=== PATIENT | male | born 1955 | race Caucasian/White ===

== ENCOUNTER 2019-01-09 21:01 | Observation (INO) ==
[2019-01-09] MEDS ORDERED: ADENOCARD ONE ×2 (21:32→21:33)
[2019-01-09] MEDS ORDERED: NS 1,000 ML ONE (21:34)
[2019-01-09] MEDS ORDERED: NS 1,000 ML IV ONE (21:36)
[2019-01-09] MEDS ORDERED: ADENOCARD IV ONE ×2 (21:37)
--- NOTE | 2019-01-09 21:50 | PROVIDER DOCUMENTATION ---
HPI-Cardiac General - General Chief Complaint: HEART ALERT Stated Complaint: HIGH HEART RATE/SOB/HEART HISTORY Time Seen by Provider: 01/09/19 21:21 Source: patient Allergies/Adverse Reactions: Patient Allergies Allergy/AdvReac Type Severity Reaction Status Date / Time No Known Allergies Allergy Verified 09/29/16 22:19 Home Medications: Home Medication List Medication Instructions Recorded Confirmed Last Taken Type Aspirin 325 mg PO DAILY 11/05/14 09/29/16 09/29/16 History Furosemide [Lasix] 40 mg PO DAILY 11/05/14 09/29/16 09/29/16 History Losartan/Hydrochlorothiazide 1 each PO DAILY 11/05/14 09/29/16 09/29/16 History [Losartan-Hctz 100-12.5 mg Tab] Metformin [Glucophage] 500 mg PO DAILY 11/05/14 09/29/16 09/29/16 History Metoprolol Tartrate [Lopressor] 100 mg PO DAILY 11/05/14 09/29/16 09/29/16 History Loratadine [Claritin] 10 mg PO DAILY 09/29/16 09/29/16 09/29/16 History Clindamycin [Cleocin] 300 mg PO Q6HR #40 capsule 09/30/16 Unknown Rx - History of Present Illness-Cardiac Nature of Presenting Problem: 63 yr old M, hx of HF, HTN, presents with palpitations and SOB that started 45 minutes prior to arrival. Symptoms started suddenly. No chest pain, no LOC. Pt only reports difficulty trying to catch his breath. Reports having had palpitations in the past, but this is the first time he has ever felt short of breath when it happens. Severity in ED: moderate Onset/Duration: just prior to arrival Timing: still present Context/Activities at Onset: reports: none Palpitation lasted? (mins): 45 Palpitation Quality: fast/pounding heart beat History of arrythmia: reports: none Recent use of:: reports: no stimulants Nitro Today/Relief: reports: no nitro taken today Aspirin Treatment Today: reports: no aspirin today Prior Chest Pain/Cardiac Workup: reports: no prior chest pain. denies: cardiac cath Associated Symptoms: reports: shortness of breath. denies: syncope Review of Systems - Adult - REVIEW OF SYSTEMS - ADULT Constitutional: reports: no symptoms reported Eyes: reports: no symptoms reported Ears, Nose, Mouth & Throat: reports: no symptoms reported Cardiovascular: reports: palpitations Respiratory: reports: shortness of breath Gastrointestinal: reports: no symptoms reported Genitourinary: reports: no symptoms reported Musculoskeletal: reports: no symptoms reported Integumentary: reports: no symptoms reported Neurological: reports: no symptoms reported Psychiatric: reports: no symptoms reported Past History - Adult - PAST MEDICAL HISTORY-ADULT Review of Records: reports: Old Records Reviewed, Nursing Assessment Review Major Childhood Illnesses: reports: denies history Cardiovascular: reports: denies history Respiratory: reports: denies history Gastrointestinal: reports: denies history Obstetrical/Gynecological: reports: denies history Genitourinary: reports: denies history Musculoskeletal: reports: denies history Neurological: reports: denies history Endocrine/Immune: reports: denies history Other Conditions: reports: denies history - FAMILY HISTORY Family History: reviewed, not pertinent - SOCIAL HISTORY Smoking: denies Substance Use: none/never Living Situation: family Physical Exam-General - PHYSICAL EXAM-ADULT Initial Vital Signs Reviewed: Yes - CONSTITUTIONAL General Appearance: alert, mild distress - EYES Eyes: PERRL/EOMI - HEAD, EARS, NOSE, MOUTH & THROAT HENMT: normocephalic/atraumatic, moist mucous membranes - RESPIRATORY Respiratory: lungs clear, normal breath sounds - CARDIOVASCULAR Cardiovascular: tachycardia - GASTROINTESTINAL (ABDOMEN) Abdominal Exam: non tender, soft - SKIN Integumentary: warm/dry - NEUROLOGIC Neurologic: no motor/sensory deficits - PSYCHIATRIC Psych/Mental Status: oriented x 3, anxious - HEART Score HEART Score: History: Moderately Suspicious HEART Score: ECG: Normal HEART Score: Age: 45-65 Years HEART Score: Risk Factors for Atherosclerotic Disease: 1 or 2 Risk Factors HEART Score: Troponin: < or = Normal Limit Total HEART Score:: 3 Progress - PLAN OF CARE/RESULTS Progress/Plan/Lab Results: Attempted vagal maneuvers initially, with no success. Connected pt to monitor, discussed with the pt our plan to administer adenosine and potential reaction; administered adenosine 6 mg, received temporary reduction in rate before noting rebound tachycardia. Administered 12 mg of adenosine, achieved rate reduction to to low 100s. Re-evaluation about 30 min later showed HR in the high 90s. Pt was stable, tolerated intervention well. Discussed case with hospitalist who accepts for admission. Result Diagrams: 01/09/19 21:36 11/19/19 21:36 - EKG 1 Time of EKG reading by physician:: 21:08 EKG Read and Signed by:: Que Del Valle EKG Interpretation (*Must complete 3 of following elements*): Abnormal Rate: 174 Rhythm: supraventricular tachycardia Diana: normal ST Wave: normal 2 Time of EKG reading by physician:: 22:04 EKG Read and Signed by:: Keily Valdovinos EKG Interpretation (*Must complete 3 of following elements*): Normal Rate: 107 Rhythm: sinus tachycardia Diana: normal QRS: normal SD Interval: normal ST Wave: normal Prior EKG Comparison: changes noted Comments: improved HR - XRAY 1 XRAY Study: Chest Impression: See EMR Report XRAY Interpretation: no acute processes Departure - Departure Date of Disposition Decision: 01/10/19 Time of Disposition Decision: 01:33 DIAGNOSIS: Supraventricular tachycardia Disposition: ADMITTED INPATIENT 09 Certified Medical Emergency: Emergent Condition: Fair - Critical Care Note This patient required my direct & personal management of CC.: No Attestation - Physician/ DEMETRIO Attestation Patient care was provided by Advanced Practice Provider:: No The physician spent face to face time with patient:: Yes Advanced Practice Provider documentation review:: Supervising physician onsite and consulted in the evaluation and care of this patient. The physician did have a face to face encounter with the patient.
[2019-01-09 21:54] LABS: BASO# 0.11 X1000 (0.0-0.2); BASO% 1.1 % (0.0-0.8); HEMATOCRIT 46.7 % (42.0-52.0); HEMOGLOBIN 15.6 g/dL (14.0-18.0); IMM GRAN# 0.02 X1000 (0.0-0.04); IMM GRAN% 0.2 % (0.0-0.5); LYMPH# 3.34 X1000 (1.2-3.4); LYMPH% 33.6 % (20.5-51.1); MCH 28.7 PG (27-31); MCHC 33.4 g/dL (33-37); MCV 85.8 FL (81-99); MONO# 0.81 X1000 (0.11-0.59); MONO% 8.1 % (1.7-9.3); MPV 9.4 FL (7.4-10.4); NEUT# 5.06 X1000 (1.4-6.5); PLT 277 X1000 (130-400); RBC 5.44 XMIL (4.7-6.1); RDW 13.6 % (11.5-14.5); WBC 9.94 X1000 (4.8-10.8)
--- NOTE | 2019-01-09 22:01 | EKG Report ---
Test Performed on : 01/09/2019 9:07:18 PM Test Reason : SOB Blood Pressure : / mmHG Vent. Rate : 174 BPM Atrial Rate : 178 BPM P-R Int : 000 ms QRS Dur : 094 ms QT Int : 272 ms P-R-T Axes : 000 -05 014 degrees QTc Int : 462 ms Supraventricular tachycardia. Inferior infarct , age undetermined Abnormal ECG When compared with ECG of 12-AUG-2009 09:27, Vent. rate has increased BY 89 BPM Inferior infarct is now present ST now depressed in Inferior leads ST now depressed in Anterolateral leads Unconfirmed Result
[2019-01-09 22:02] LABS: INR 1.01; PROTIME 13.4 Seconds (11.0-16.0)
--- NOTE | 2019-01-09 22:03 | EKG Report ---
Test Performed on : 01/09/2019 10:04:11 PM Test Reason : Tachycardia Blood Pressure : / mmHG Vent. Rate : 107 BPM Atrial Rate : 107 BPM P-R Int : 194 ms QRS Dur : 094 ms QT Int : 336 ms P-R-T Axes : 027 013 011 degrees QTc Int : 448 ms Sinus tachycardia. Otherwise normal ECG When compared with ECG of 09-JAN-2019 21:07, (Unconfirmed) Vent. rate has decreased BY 67 BPM Criteria for Inferior infarct are no longer present ST no longer depressed in Inferior leads ST no longer depressed in Anterolateral leads Unconfirmed Result
--- NOTE | 2019-01-09 22:11 | Diag Imaging Result Doc PS360 ---
CHEST-1 VIEW - 01/09/2019 INDICATION: SOB, tachycardia COMPARISON: 07/15/2017 FINDINGS: The lungs are normally expanded and clear. Heart size and mediastinal contours are normal. No pneumothorax or pleural effusion. IMPRESSION: Negative exam. Electronically signed by Shreyas Alcocer 01/09/2019 10:09 PM
[2019-01-09 22:12] LABS: AGAP 15; ALB/GLOB RATIO 1.4; ALBUMIN 4.4 g/dL (3.5-5.0); ALKALINE PHOSPHATASE 80 U/L (32-122); BUN 16 mg/dL (8-22); CALCIUM 9.5 mg/dL (8.8-10.2); CHLORIDE 95 mmol/L (98-107); CK PROFILE 269 U/L (24-204); COSMO 285; ESTIMATED GFR > 60; GLUCOSE 280 mg/dL (70-104); GOT 23 U/L (10-34); GPT 35 U/L (10-44); POTASSIUM 3.5 mmol/L (3.5-5.1); SODIUM 137 mmol/L (136-145); TCO2 27 mmol/L (25-35); TOTAL BILIRUBIN 0.41 mg/dL (0.20-1.00); TOTAL PROTEIN 7.5 g/dL (6.3-8.3)
[2019-01-09 22:31] LABS: CK INDEX 1.9 (0.0-2.5); CK-MB 5.01 ng/mL (0.0-5.0)
[2019-01-09 22:53] LABS: PTT 27.2 Seconds (22.3-41.8)
[2019-01-10] MEDS: LOVENOX SUBQ SCH (02:17)
--- NOTE | 2019-01-10 07:10 | HISTORY AND PHYSICAL ---
PRIMARY CARE PHYSICIAN: Dr. Mt Torres. CHIEF COMPLAINT: Palpitations and shortness of breath x1 day. HISTORY OF PRESENTING ILLNESS: This is a 63-year-old male with a history of hypertension, CHF, diabetes mellitus type 2, diet controlled who presented to the emergency department with 1-day history of having heart racing and shortness of breath. The patient states that he was watching TV when his symptoms all started. He states that it was getting worse, and subsequently had come to the emergency department. In the ED, he was evaluated. He was found to be in SVT. He was given adenosine, and he seemed to convert back to normal sinus rhythm. However, due to his presenting symptoms, it was thought that we will place him for observation for further evaluation and management. At the time of my examination, patient denied any headache, fever, chills, hemoptysis, melena, or weight changes, but complained of some chest discomfort and shortness of breath. PAST MEDICAL HISTORY: Include diabetes mellitus type 2, hypertension, and CHF. PAST SURGICAL HISTORY: No surgery. ALLERGIES: No known drug allergies. CURRENT MEDICATIONS: 1. Aspirin 325 mg p.o. daily. 2. Furosemide 40 mg p.o. daily. 3. Losartan HCT 100/12.5 one p.o. daily. 4. Metformin 500 mg p.o. daily. 5. Metoprolol 100 mg p.o. daily. SOCIAL HISTORY: He is a former smoker. No history of alcohol or illicit drug use. FAMILY HISTORY: Positive for coronary artery disease in father. REVIEW OF SYSTEMS: Fourteen point review of systems listed s as in HPI. Other systems negative. PHYSICAL EXAMINATION: GENERAL: Cooperative, friendly male. He is resting comfortably now. VITAL SIGNS: Temperature 97.8 degrees, pulse 169, respirations 19 and blood pressure 130/89. HEENT: Atraumatic, normocephalic. Extraocular movements intact. PERRLA. NECK: Supple. CHEST: Clear to auscultation. CARDIOVASCULAR: Regular rate and rhythm. ABDOMEN: Soft. Positive bowel sounds. EXTREMITIES: No edema. NEUROLOGIC: He is awake, alert, and oriented x3. : No bladder distention. SKIN: Warm. LABORATORIES AND STUDIES: WBCs 9.94, hemoglobin 15.6 hematocrit 46.7 and platelets 277,000. Sodium 137, potassium 3.5, chloride 95, CO2 is 27, BUN is 16, creatinine is 1.0, glucose is 280, and troponin 0.010. ASSESSMENT: This is a 63-year-old male with a history of hypertension, diabetes mellitus type 2, congestive heart failure, who had presented to the emergency department with a 1-day history of having heart racing, and shortness of breath. He was evaluated in the emergency department. He was found to be in SVT, he was given adenosine. He converted to normal sinus rhythm however, due to his presenting symptoms, we will place him for observation for further evaluation and management ASSESSMENT: 1. SVT. 2. Dyspnea. 3. Hypertension. 4. Diabetes mellitus type 2. PLAN: 1. We will admit patient to medical floor with telemetry. 2. We will consult Cardiology. 3. We will trend troponins. 4. Continue patient on supplemental oxygen. 5. Monitor blood pressure closely. Resume antihypertensive agent. 6. We will check a hemoglobin A1c. 7. Put patient on DVT prophylaxis with Lovenox. 8. We will continue to follow and reassess, and make further recommendations based on patient's clinical course. cc: Clark Flores MD
--- NOTE | 2019-01-10 12:09 | EKG Report ---
Test Performed on : 01/10/2019 11:59:07 AM Test Reason : Tachycardia Blood Pressure : / mmHG Vent. Rate : 072 BPM Atrial Rate : 072 BPM P-R Int : 176 ms QRS Dur : 104 ms QT Int : 408 ms P-R-T Axes : 030 012 030 degrees QTc Int : 446 ms Normal sinus rhythm. Normal ECG When compared with ECG of 09-JAN-2019 22:04, (Unconfirmed) Vent. rate has decreased BY 35 BPM Confirmed by Justin GONZALEZ, P.J.M ([id number]) on 01/10/2019 8:00:09 PM
--- NOTE | 2019-01-10 15:10 | ECHO REPORT ---
ORDER DATE: 01/10/2019 INTERPRETING PHYSICIAN: Dr. Shola Liao ECHOCARDIOGRAPHIC MEASUREMENTS: 1. Interventricular septum: 0.9 cm. 2. Posterior wall: 0.9 cm. 3. Diastolic diameter: 5.6 cm. 4. Left atrium: 2.8 cm. 5. Aortic root: 3.6 cm. SUMMARY OF THE 2-DIMENSIONAL IMAGIN. Aortic valve leaflets are trileaflet. 2. Pulmonic valve not well visualized. 3. Mitral valve was normal. 4. Tricuspid valve was normal. 5. Normal left ventricular cavity size. Estimated ejection fraction of 60%. 6. There is mild mitral regurgitation. 7. Mild tricuspid regurgitation. Peak velocity across the tricuspid valve less than 2 m/sec. 8. Peak velocity across the aortic valve less than 2 m/sec. There is no aortic stenosis or regurgitation. 9. There is no pericardial effusion. 10. Anterior echo-free space suggestive of pericardial fat pad noted. cc: MD Diana Flynn PA
[2019-01-10] MEDS ORDERED: TOPROL XL PO SCH (15:27)
[2019-01-10] MEDS ORDERED: HYZAAR 50/12.5 MG PO SCH (15:30)
[2019-01-10] MEDS: COZAAR PO SCH (20:40)
[2019-01-10] MEDS: CARDIZEM CD PO SCH (20:40)
[2019-01-10] MEDS ORDERED: FLOMAX PO SCH (21:00)
--- NOTE | 2019-01-10 22:45 | PROGRESS NOTE ---
DATE: 01/10/2019 SUBJECTIVE: This patient is resting comfortably in bed. I have restarted his home medications. He came in with SVT and he was treated with adenosine, at this moment, he is in normal sinus rhythm, he has no complaint of chest pain, shortness of breath. Echocardiogram, I did not see any abnormalities in the echocardiogram and the troponin's are negative x3. I will wait for Cardiology evaluation and recommendations. OBJECTIVE: Vital Signs: Temperature 98.1 degrees, pulse 73, respiratory rate 20, blood pressure 116/74, oxygen saturation 94% on room air. HEENT: Head normocephalic, no trauma. PERRLA. Neck: Supple. No JVD. No masses. Central trachea. Chest: Clear to auscultation. No wheezing. No rales. Abdomen: Soft, protuberant, nontender, nondistended. No hepatosplenomegaly. Extremities: Trace lower extremity edema. No clubbing. No cyanosis. Neurological: The patient is alert and oriented x3. No focal deficits. LABORATORY: Troponin's negative x2 today. CK 178. Glucose 134. ASSESSMENT AND PLAN: 1. Admitted due to supraventricular tachycardia. He has been treated with adenosine successfully and now he is in sinus rhythm, he has been placed on telemetry on the medical floor. I will continue with his home medications, including metoprolol, losartan/hydrochlorothiazide and furosemide. Echocardiogram did not show any problem with the ejection fraction or abnormality. 2. Shortness of breath/dyspnea. Likely associated to #1. 3. Hypertension. Stable. Continue with home medications. 4. Type 2 diabetes. This patient is not on any kind of medication at home, apparently he has been placed on metformin a long time ago, but he was having some episodes of hypoglycemia, I explained to the patient that the possibility of having hypoglycemia with metformin is almost none. I will check a hemoglobin A1c and I will re-evaluate this patient in the morning, also I will ask for a TSH. cc: Jiame Burgos MD
[2019-01-11] MEDS: LOVENOX SUBQ SCH (05:05)
--- NOTE | 2019-01-11 07:22 | CONSULTATION ---
DATE OF CONSULTATION: 01/10/2019 IMPRESSION: 1. Paroxysm of supraventricular tachycardia. The patient converted back to sinus rhythm with adenosine. 2. Hypertensive cardiovascular disease with left ventricular diastolic dysfunction. 3. Type 2 diabetes mellitus. 4. Obesity. 5. Obstructive sleep apnea. RECOMMENDATIONS: 1. Add long-acting diltiazem to try and suppress further episodes of paroxysmal SVT. 2. Followup echocardiography. 3. Change losartan/hydrochlorothiazide to losartan 50 mg p.o. daily. 4. Discontinue metoprolol. 5. Reasonable to discharge the patient in a.m. tomorrow if no further problems overnight. He should follow up with Dr. Saad Smith, his regular gemologist, in the next several weeks. HISTORY: This 63-year-old white male with past history of hypertensive cardiovascular disease, chronic diastolic heart failure, type 2 diabetes mellitus, obesity, and obstructive sleep apnea, presented to the emergency room this morning by automobile with tachy palpitations and shortness of breath. He was found to be in supraventricular tachycardia. He received 2 doses of adenosine, and converted back to sinus rhythm. Given his medical issues and associated shortness of breath with his arrhythmia, he was admitted for observation. He relates no prior history of cardiac arrhythmias or palpitations. He continues without chest discomfort or shortness of breath. Symptoms pretty much resolved after SVT converted back to sinus rhythm. PAST MEDICAL HISTORY: 1. Hypertensive cardiovascular disease. 2. Chronic diastolic heart failure. 3. Type 2 diabetes mellitus. 4. Obstructive sleep apnea. 5. Obesity. 6. Venous insufficiency of the lower extremities. PAST SURGICAL HISTORY: None. ALLERGIES: No known drug allergies. MEDICATIONS PRIOR TO ADMISSION: As listed. SOCIAL HISTORY: He is . He is a former smoker. He does not use alcohol. FAMILY HISTORY: Positive for coronary disease in his father. REVIEW OF SYSTEMS: Pulmonary: Noncontributory beyond history of present illness. Gastrointestinal: Noncontributory beyond history of present illness. Constitutional: Noncontributory beyond history of present illness. Remainder of review of systems negative/noncontributory beyond history of present illness with 14 total systems reviewed. PHYSICAL EXAMINATION: General: This is an obese, middle-aged, white male, in no distress on room air. Vital Signs: Blood pressure 116/74, heart rate 73, oxygen saturation 94% on room air. HEENT: Extraocular movements intact. Mucous membranes moist. Neck: Supple. No jugular venous distention. No carotid bruits. Chest: Clear to auscultation. Cardiac: Regular rate and rhythm without appreciable murmur or gallop. Abdomen: Soft. Bowel sounds are normal. Extremities: Without edema. Neurologic: He is alert and fully oriented. Speech is fluent. He moves all 4 extremities equally well. Skin: Warm and dry. Psychiatric: Mood is appropriate. 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 Repeat ECG following adenosine administration demonstrates normal sinus rhythm. LABORATORY DATA: Includes a white blood cell count of 9.94, hematocrit 46.7, hemoglobin 15.6, platelet count 277,000. ProTime 13.4, INR 1.01, PTT 27.2. Sodium 137, potassium 3.5, chloride 95, carbon dioxide 27, BUN 16, creatinine 1.0. Initial CPK 269. Followup CPK 178. Initial troponin T less than 0.01, followup troponin T less than 0.01, and further followup troponin T less than 0.01. cc: Everardo Staton MD
[2019-01-11] MEDS: COZAAR PO SCH (08:16)
[2019-01-11] MEDS: CARDIZEM CD PO SCH (08:16)
[2019-01-11 08:22] LABS: BASO% 1.3 % (0.0-0.8); EOS# 0.52 X1000 (0.0-0.7); EOS% 6.9 % (0.0-10.0); HEMATOCRIT 44.2 % (42.0-52.0); HEMOGLOBIN 14.5 g/dL (14.0-18.0); LYMPH# 2.79 X1000 (1.2-3.4); LYMPH% 37.1 % (20.5-51.1); MCH 28.3 PG (27-31); MCHC 32.8 g/dL (33-37); MCV 86.3 FL (81-99); MONO# 0.52 X1000 (0.11-0.59); MONO% 6.9 % (1.7-9.3); MPV 9.2 FL (7.4-10.4); NEUT# 3.59 X1000 (1.4-6.5); NEUT% 47.8 % (42.2-75.2); PLT 228 X1000 (130-400); RBC 5.12 XMIL (4.7-6.1); RDW 13.6 % (11.5-14.5); WBC 7.52 X1000 (4.8-10.8)
[2019-01-11 08:42] LABS: AGAP 12; ALB/GLOB RATIO 1.5; ALKALINE PHOSPHATASE 55 U/L (32-122); BUN 13 mg/dL (8-22); CALCIUM 9.1 mg/dL (8.8-10.2); CHLORIDE 102 mmol/L (98-107); COSMO 278; CREATININE 0.8 mg/dL (0.7-1.2); ESTIMATED GFR > 60; GLUCOSE 140 mg/dL (70-104); GOT 17 U/L (10-34); GPT 29 U/L (10-44); POTASSIUM 3.5 mmol/L (3.5-5.1); SODIUM 138 mmol/L (136-145); TCO2 24 mmol/L (25-35); TOTAL BILIRUBIN 0.73 mg/dL (0.20-1.00); TOTAL PROTEIN 6.7 g/dL (6.3-8.3)
[2019-01-11 08:53] LABS: HEMOGLOBIN A1C 7.6 % (4.8-6.0)
[2019-01-11] MEDS ORDERED: TOPROL XL PO SCH (09:00)
[2019-01-11] MEDS ORDERED: CARDIZEM CD PO SCH (09:00)
[2019-01-11] MEDS ORDERED: CLARITIN PO SCH (09:00)
[2019-01-11] MEDS ORDERED: COZAAR PO SCH (09:00)
[2019-01-11] MEDS ORDERED: ASPIRIN PO SCH (09:00)
[2019-01-11] MEDS ORDERED: LASIX PO SCH (09:00)
[2019-01-11] MEDS ORDERED: HYZAAR 50/12.5 MG PO SCH (09:00)
[2019-01-11 11:49] VITALS: BP 118/80
--- NOTE | 2019-01-12 21:39 | DISCHARGE SUMMARY ---
ADMISSION DATE: 01/09/2019 DISCHARGE DATE: 01/11/2019 DISCHARGE DIAGNOSES: 1. Supraventricular tachycardia, resolved. 2. Shortness of breath/dyspnea, likely due to #1, resolved. 3. Hypertension. 4. Diabetes with a hemoglobin A1c of 7.6. PROCEDURES PERFORMED: 1. Chest x-ray dated 01/09/2019. Impression: Negative exam. 2. Echocardiogram dated 01/10/2019. Impression: Ejection fraction of 60%. Essentially unremarkable. CONSULTATIONS: Cardiology Department, Everardo Staton MD HOSPITAL COURSE: A 63-year-old male with a past medical history of hypertension, diabetes diet-controlled presented to the emergency department with 1-day history of having heart racing and shortness of breath. He was admitted on 01/09/2019. The patient states that he was watching TV when the symptoms started, and they have been getting worse, and subsequently he had to come to the emergency department. In the emergency department, he was evaluated and found to be in SVT. He was given adenosine, and he converted back to sinus rhythm; however, because of his presenting symptoms, he was placed on observation. Cardiology Department did an echocardiogram that was basically unremarkable, as well as the chest x-ray. Cardiology Department also evaluated this patient, and they have stopped his previous medication and placed this patient on long-acting diltiazem to try to suppress further episode of paroxysmal SVT, and also stop the hydrochlorothiazide, and continue with losartan as well. This patient seems to be doing much better. He was basically asymptomatic today. I checked his TSH. It was normal. Hemoglobin A1c 7.6. We had really large conversation about diabetes, diet and weight control. The patient will be discharged home. He also has a history of sleep apnea, and he sleeps with a CPAP machine. PHYSICAL EXAMINATION: Vital signs: Temperature 98.3 degrees, pulse 95, respiratory rate 19, blood pressure 118/80, oxygen saturation 93 on room air. HEENT: Head normocephalic, no trauma. PERRLA. Neck: Supple. No JVD. No masses. Central trachea. Chest: Clear to auscultation. No wheezing. No rales. Abdomen: Soft, protuberant, nontender, nondistended. No hepatosplenomegaly. Extremities: Trace lower extremity edema. No clubbing. No cyanosis. Neurological: The patient is alert. He is oriented x3. No focal deficits. LABORATORY DATA: WBC 7.5, hemoglobin 14.5, hematocrit 44.2, platelets 228,000. Sodium 138, potassium 3.5, chloride 102, bicarbonate 24, BUN 13, creatinine 0.8, glucose 140, calcium 9.1, hemoglobin A1c 7.6. DISCHARGE MEDICATIONS: Diltiazem CD 120 mg p.o. daily, aspirin 81 mg p.o. daily, furosemide 20 mg p.o. daily, loratadine 10 mg p.o. daily, losartan 50 mg p.o. daily, Viagra 25 mg p.o. as needed, tamsulosin 0.4 mg p.o. at bedtime. FOLLOWUP: With Cardiology Department. He will need to call for an appointment. cc: Jaime Burgos MD
== END 2019-01-11 14:40 | disposition home or self-care (01) ==
LOC: 3N 21:01 → ED 21:01 → SUATTDRO 21:02 → 3N 01-10 18:22
PROVIDERS: ATTEND Internal Medicine

== ENCOUNTER 2019-01-12 00:43 | Observation (INO) ==
[2019-01-12] MEDS ORDERED: ADENOCARD IV ONE (00:55)
[2019-01-12] MEDS ORDERED: ADENOCARD ONE (01:00)
[2019-01-12] MEDS ORDERED: NS 1,000 ML ONE (01:01)
--- NOTE | 2019-01-12 01:09 | PROVIDER DOCUMENTATION ---
HPI-General Adult - General Chief Complaint: Palpitations Stated Complaint: HIGH HEART RATE Time Seen by Provider: 01/12/19 00:53 Source: patient Allergies/Adverse Reactions: Patient Allergies Allergy/AdvReac Type Severity Reaction Status Date / Time No Known Allergies Allergy Verified 09/29/16 22:19 Home Medications: Home Medication List Medication Instructions Recorded Confirmed Last Taken Type Loratadine [Claritin] 10 mg PO DAILY 09/29/16 01/12/19 1 Day Ago History ~01/09/19 Aspirin 81 mg PO DAILY 01/10/19 01/12/19 1 Day Ago History ~01/09/19 Furosemide [Lasix] 20 mg PO DAILY 01/10/19 01/12/19 1 Day Ago History ~01/09/19 Sildenafil Citrate [Viagra] 25 mg PO PRN PRN 01/10/19 01/12/19 Unknown History Tamsulosin [Flomax] 0.4 mg PO QHS 01/10/19 01/12/19 1 Day Ago History ~01/09/19 Diltiazem C.d. [Cardizem Cd] 120 mg PO DAILY #120 cap 01/11/19 01/12/19 Unknown Rx Losartan [Cozaar] 50 mg PO DAILY #120 tab 01/11/19 01/12/19 Unknown Rx - History of Present Illness -Gen Adult Nature of Presenting Problems: 63yo male with hx of discharge yesterday for SVT, returns with CC of rapid heart rate and SOB. The patient reports that the onset was around 11pm. The patient was watching TV. The patient reports that he has taken all of his medications. The patient denies any pain. The patient denies any fevers or nausea. The patient does not an elevated HR. The first onset of these symptoms was earlier this week. The patient does discuss a previous hx of rapid heart beat with exertion. The patient denies alcohol, smoking, or illegal drugs. Review of Systems - Adult - REVIEW OF SYSTEMS - ADULT Constitutional: reports: no symptoms reported. denies: fever Eyes: reports: no symptoms reported. denies: eye pain Ears, Nose, Mouth & Throat: reports: no symptoms reported. denies: throat pain Cardiovascular: reports: irregular heart rate. denies: chest pain Respiratory: reports: shortness of breath Gastrointestinal: reports: no symptoms reported. denies: abdominal pain Genitourinary: reports: no symptoms reported. denies: flank pain Musculoskeletal: reports: no symptoms reported. denies: back pain Integumentary: reports: no symptoms reported Neurological: reports: no symptoms reported. denies: headache/migraines Psychiatric: reports: no symptoms reported Endocrine: reports: no symptoms reported Hematologic/Lymphatic: reports: no symptoms reported, other (no bleeding) Allergic/Immunologic: reports: no symptoms reported, other (no swelling) Past History - Adult - PAST MEDICAL HISTORY-ADULT Review of Records: reports: Old Records Reviewed Major Childhood Illnesses: reports: denies history Cardiovascular: reports: denies history Respiratory: reports: denies history Gastrointestinal: reports: denies history Obstetrical/Gynecological: reports: denies history Genitourinary: reports: denies history Musculoskeletal: reports: denies history Neurological: reports: denies history Endocrine/Immune: reports: denies history Other Conditions: reports: denies history - FAMILY HISTORY Family History: reviewed, not pertinent Physical Exam-General - PHYSICAL EXAM-ADULT Initial Vital Signs Reviewed: Yes - CONSTITUTIONAL General Appearance: appears well, alert, no apparent distress - EYES Eyes: negative: conjuctival exudate, photophobia - HEAD, EARS, NOSE, MOUTH & THROAT HENMT: normocephalic/atraumatic, moist mucous membranes - RESPIRATORY Respiratory: normal breath sounds, no respiratory distress - CARDIOVASCULAR Cardiovascular: regular rate, rhythm (after adenosine cardioversion) - GASTROINTESTINAL (ABDOMEN) Abdominal Exam: non tender, soft - MUSCULOSKELETAL Extremity: non-tender (LE) - SKIN Integumentary: normal color, warm/dry - NEUROLOGIC Neurologic: grossly normal - PSYCHIATRIC Psych/Mental Status: normal mood/affect, normal thought content, normal thought process Progress - PLAN OF CARE/RESULTS Progress/Plan/Lab Results: Vital Signs - 8 hr 01/12/19 00:45 01/12/19 01:02 Temperature 97.5 F L 98.4 F Pulse Rate 180 H 167 H Respiratory Rate 18 20 Blood Pressure 143/90 143/117 O2 Sat by Pulse Oximetry 95 100 Orders Category Date Time Status Cardiac Monitoring DIRECTED Care 01/12/19 01:04 Ordered Oxygen Therapy- ED Nursing DIRECTED Care 01/12/19 01:04 Ordered Saline Loc NOW Care 01/12/19 01:04 Ordered CBC WITH ELECTRONIC DIFF [HEME] Stat Lab 01/12/19 01:04 Uncollected CK PROFILE [SP CHEM] Stat Lab 01/12/19 01:04 Uncollected COMPREHENSIVE METABOLIC PANEL [CHEM] Stat Lab 01/12/19 01:04 Uncollected MAGNESIUM [CHEM] Stat Lab 01/12/19 01:05 Uncollected PRO B-NATRIURETIC PEPTIDE Stat Lab 01/12/19 01:04 Uncollected PROTIME WITH INR [COAG] Stat Lab 01/12/19 01:04 Uncollected PTT [COAG] Stat Lab 01/12/19 01:04 Uncollected TROPONIN T Stat Lab 01/12/19 01:04 Uncollected 0.9% Sodium Chloride Inj [Ns] 1,000 ml Med 01/12/19 01:01 Discontinued .ROUTE As directed Adenosine [Adenocard] Med 01/12/19 00:55 Once 12 mg IV NOW ONE Adenosine [Adenocard] Med 01/12/19 01:00 Discontinued 24 mg .ROUTE .STK-MED ONE CP/SOB/Palp >45 yrs of Age Stat Oth 01/12/19 01:04 Ordered EKG [EKG] Stat Ther 01/12/19 00:48 Ordered EKG [EKG] Stat Ther 01/12/19 01:04 Ordered Result Diagrams: 01/12/19 00:56 - REASSESSMENT Reassessment #1 Status: improving (Patient converted well with 12mg of adenosine. HR is now in the 90s and patient is feeling better. Repeat EKG with NSR. Labs pending.) Reassessment #2 Status: other (Patient improved after adenosine. Labs pending. Discussed case with hospitalist who is familiar with the patient and he has accepted the patient.) - EKG 1 Time of EKG reading by physician:: 12:51 EKG Read and Signed by:: Que Del Valle (Read and Entered by Dr. Oneil) EKG Interpretation (*Must complete 3 of following elements*): Abnormal Rate: 169 Rhythm: SVT [place]: normal QRS: normal ST Wave: non-specific ST changes 2 Time of EKG reading by physician:: 01:06 EKG Read and Signed by:: Wyatt Oneil EKG Interpretation (*Must complete 3 of following elements*): Normal Rate: 93 Rhythm: sinus [place]: normal QRS: normal [place] Interval: normal ST Wave: normal Prior EKG Comparison: changes noted (No longer in SVT from previous EKG) Departure - Departure Date of Disposition Decision: 01/12/19 Time of Disposition Decision: 01:46 DIAGNOSIS: SVT (supraventricular tachycardia) Disposition: ADMITTED INPATIENT 09 Certified Medical Emergency: Emergent Condition: Fair Referrals and Follow-Ups: Mt Torres MD [Primary Care Provider] - - Critical Care Note This patient required my direct & personal management of CC.: No Attestation - Physician/ DEMETRIO Attestation Patient care was provided by Advanced Practice Provider:: No The physician spent face to face time with patient:: Yes Advanced Practice Provider documentation review:: Supervising physician onsite and consulted in the evaluation and care of this patient. The physician did have a face to face encounter with the patient.
[2019-01-12 01:20] LABS: BASO# 0.11 X1000 (0.0-0.2); BASO% 1.1 % (0.0-0.8); EOS# 0.63 X1000 (0.0-0.7); HEMATOCRIT 47.2 % (42.0-52.0); HEMOGLOBIN 15.6 g/dL (14.0-18.0); IMM GRAN# 0.02 X1000 (0.0-0.04); IMM GRAN% 0.2 % (0.0-0.5); LYMPH# 3.89 X1000 (1.2-3.4); LYMPH% 37.3 % (20.5-51.1); MCH 28.5 PG (27-31); MCHC 33.1 g/dL (33-37); MCV 86.1 FL (81-99); MONO# 0.86 X1000 (0.11-0.59); MONO% 8.2 % (1.7-9.3); MPV 9.2 FL (7.4-10.4); NEUT# 4.92 X1000 (1.4-6.5); NEUT% 47.2 % (42.2-75.2); PLT 263 X1000 (130-400); RBC 5.48 XMIL (4.7-6.1); RDW 13.6 % (11.5-14.5); WBC 10.43 X1000 (4.8-10.8)
[2019-01-12 01:34] LABS: INR 0.96; PROTIME 12.9 Seconds (11.0-16.0); PTT 27.9 Seconds (22.3-41.8)
[2019-01-12 02:23] LABS: AGAP 15; ALBUMIN 4.7 g/dL (3.5-5.0); ALKALINE PHOSPHATASE 77 U/L (32-122); BUN 15 mg/dL (8-22); CALCIUM 9.1 mg/dL (8.8-10.2); CHLORIDE 103 mmol/L (98-107); CK PROFILE 182 U/L (24-204); COSMO 287; ESTIMATED GFR > 60; GLUCOSE 184 mg/dL (70-104); GOT 19 U/L (10-34); GPT 31 U/L (10-44); SODIUM 141 mmol/L (136-145); TCO2 23 mmol/L (25-35); TOTAL BILIRUBIN 0.44 mg/dL (0.20-1.00); TOTAL PROTEIN 7.1 g/dL (6.3-8.3)
[2019-01-12] MEDS ORDERED: TYLENOL PO PRN (02:52)
[2019-01-12] MEDS ORDERED: ZOFRAN IV PRN (02:52)
--- NOTE | 2019-01-12 04:59 | EKG Report ---
Test Performed on : 01/12/2019 00:51:26 AM Test Reason : CP Blood Pressure : / mmHG Vent. Rate : 169 BPM Atrial Rate : 138 BPM P-R Int : 000 ms QRS Dur : 096 ms QT Int : 286 ms P-R-T Axes : 000 054 072 degrees QTc Int : 479 ms Supraventricular tachycardia. Possible Lateral infarct , age undetermined Abnormal ECG When compared with ECG of 10-JAN-2019 11:59, Vent. rate has increased BY 97 BPM Borderline criteria for Lateral infarct are now present ST now depressed in Inferior leads Nonspecific T wave abnormality no longer evident in Inferior leads Nonspecific T wave abnormality now evident in Lateral leads Unconfirmed Result
--- NOTE | 2019-01-12 04:59 | EKG Report ---
Test Performed on : 01/12/2019 01:06:06 AM Test Reason : Tachycardia Blood Pressure : / mmHG Vent. Rate : 093 BPM Atrial Rate : 093 BPM P-R Int : 168 ms QRS Dur : 104 ms QT Int : 374 ms P-R-T Axes : 028 004 034 degrees QTc Int : 465 ms Normal sinus rhythm. Normal ECG When compared with ECG of 12-JAN-2019 00:51, (Unconfirmed) Vent. rate has decreased BY 76 BPM Borderline criteria for Lateral infarct are no longer present ST no longer depressed in Inferior leads Nonspecific T wave abnormality no longer evident in Lateral leads Unconfirmed Result
--- NOTE | 2019-01-12 05:23 | HISTORY AND PHYSICAL ---
PRIMARY CARE PHYSICIAN: Dr. Mt Torres. CHIEF COMPLAINT: Heart racing. HISTORY OF PRESENTING ILLNESS: A 63-year-old male with a history of paroxysmal supraventricular tachycardia, hypertension, diabetes mellitus type 2, obstructive sleep apnea, CHF diastolic dysfunction, who had just been discharged from the hospital earlier today after treatment for SVT. Presents again with similar complaints of heart racing later in the day. The patient states that he was also having some mild shortness of breath. He was evaluated in the emergency department. He was found to be in SVT and he was given adenosine and he converted. Due to his presenting symptoms, it was thought that he would need admission for further management. At the time of my examination, he had denied any headache, fever, chills, hemoptysis, melena or weight changes, but complained of shortness of breath. PAST MEDICAL HISTORY: Includes paroxysmal supraventricular tachycardia, hypertension, diabetes mellitus type 2, obesity, obstructive sleep apnea, CHF diastolic dysfunction. PAST SURGICAL HISTORY: None. ALLERGIES: No known drug allergies. CURRENT MEDICATIONS: Aspirin 81 mg p.o. daily, diltiazem 120 mg p.o. daily, Lasix 20 mg p.o. daily, losartan 50 mg p.o. daily, tamsulosin 0.4 mg p.o. at bedtime. SOCIAL HISTORY: He is a former smoker. No history of alcohol or illicit drug use. FAMILY HISTORY: Positive for coronary artery disease in father. REVIEW OF SYSTEMS: Fourteen point review of system as listed in HPI. Other systems negative. PHYSICAL EXAMINATION: GENERAL: Cooperative, friendly male. He is resting more comfortably. He is without any respiratory distress. VITAL SIGNS: Temperature 97.5 degrees, pulse 180, respiration 18, blood pressure 143/90. HEENT: Atraumatic, normocephalic. Extraocular movements intact. PERRLA. NECK: Supple. CHEST: Clear to auscultation. CARDIOVASCULAR: Regular rate and rhythm. ABDOMEN: Soft. Positive bowel sounds. EXTREMITIES: No edema. NEUROLOGIC: Nonfocal. GENITOURINARY: No bladder distention. SKIN: Warm and good turgor. LABORATORIES AND STUDIES: WBC 10.43, hemoglobin 15.6, hematocrit 47.2, platelets 263,000. Other labs are pending. ASSESSMENT: A 63-year-old male with a history of paroxysmal supraventricular tachycardia, hypertension, diabetes mellitus type 2 and congestive heart failure, who had just discharged from the hospital earlier today. Presents again with similar complaints of heart racing. He was found to be in SVT. He was given adenosine and he converts back to sinus rhythm. Due to his presenting symptoms, we will place him for observation for further evaluation and management. 1. Paroxysmal supraventricular tachycardia. 2. Hypertension. 3. Diabetes mellitus type 2. 4. Congestive heart failure, diastolic dysfunction. PLAN: 1. We will admit patient to medical floor with telemetry. 2. We will consult Cardiology again. 3. Continue patient on diltiazem. 4. We will monitor blood pressure closely. 5. We will monitor blood glucose and put patient on sliding scale insulin regimen. 6. Restart his other home medications. 7. Put patient on DVT prophylaxis with SCDs. 8. We will continue to follow, reassess and make further recommendation based on patient's clinical course. cc: MD Mt Castro MD
[2019-01-12] MEDS ORDERED: ASPIRIN PO SCH (09:00)
[2019-01-12] MEDS ORDERED: LASIX PO SCH (09:00)
[2019-01-12] MEDS ORDERED: COZAAR PO SCH (09:00)
[2019-01-12] MEDS ORDERED: CARDIZEM CD PO SCH ×2 (09:00)
[2019-01-12 11:51] VITALS: BP 132/83
--- NOTE | 2019-01-12 12:40 | PROGRESS NOTE ---
DATE: 01/12/2019 VITAL SIGNS: Stable with temperature 97.6 degrees, heart rate 78, respirations 18, blood pressure 136/91, O2 saturation on nasal oxygen 96%. SUBJECTIVE: The patient is a 63-year-old white man who presented to the ER last night with rapid heart rate and chest discomfort. He was found to have SVT with rate of about 140. He was given IV Cardizem, which converted him back to sinus rhythm. He had one other episode last night requiring some IV diltiazem. The p.o. diltiazem was ordered, 120 mg CD daily. Apparently, he was in the hospital [facility] through yesterday with similar symptoms and diagnoses. He apparently was admitted by hospitalist, and I was not notified. His name was on my list this morning so he was seen, and will be followed. Cardiology consultation is again obtained. He was seen by Dr. Staton on 01/10. DIAGNOSES: 1. Paroxysmal supraventricular tachycardia. 2. Hypertensive cardiovascular disease with ventricular diastolic dysfunction. 3. Diabetes. 4. Obesity. 5. Obstructive sleep apnea. PLAN: Increase Cardizem to 240 mg daily. If there is no additional SVT and Cardiology is okay with discharge, he may be discharged this afternoon. cc: Mt Torres MD
--- NOTE | 2019-01-12 19:04 | PROGRESS NOTE ---
DATE: 01/12/2019 SUBJECTIVE: Patient just discharged yesterday and developed recurrent tachy palpitations late last night. He came back to the emergency room and was found to be in supraventricular tachycardia. After vagal maneuvers failed to convert him back to sinus rhythm he again was administered intravenous adenosine and converted back to sinus rhythm. He remains in sinus rhythm and denies any chest discomfort or shortness of breath. He previously had been on long-acting diltiazem 120 mg daily, and this has been appropriately increased to 240 mg p.o. daily. OBJECTIVE: Vital Signs: Blood pressure 132/83, heart rate 86, oxygen saturation 95%. Neck: There is no significant jugular venous distention. Chest: Clear to auscultation. Cardiac exam: Regular rate and rhythm without appreciable murmur or gallop. Extremities: Without edema. IMPRESSION: 1. Recurrent paroxysmal supraventricular tachycardia despite diltiazem 120 mg p.o. daily. 2. Hypertensive cardiovascular disease with left ventricular diastolic dysfunction. 3. Type 2 diabetes mellitus. 4. Obesity. 5. Obstructive sleep apnea. RECOMMENDATIONS: 1. Agree with increasing long-acting diltiazem to 240 mg p.o. daily. 2. Reasonable for patient to be discharged home to follow up with his regular minesweeping officer, Dr. Saad Smith, in approximately 2 to 3 weeks. cc: MD Mt Allred MD
[2019-01-12] MEDS ORDERED: FLOMAX PO SCH (21:00)
--- NOTE | 2019-01-13 19:51 | DISCHARGE SUMMARY ---
ADMISSION DATE: 01/12/2019 DISCHARGE DATE: 01/12/2019 FINAL DIAGNOSES: 1. Supraventricular tachycardia. 2. Diastolic congestive heart failure, chronic. 3. Diabetes. 4. Hypertension. 5. Sleep apnea. DISCHARGE MEDICATIONS: Usual home medicines including aspirin 81 mg daily. His Cardizem is increased to 240 mg CD 1 q.a.m. He is to continue use of his CPAP at bedtime. Consultation was obtained with Cardiology. Report is pending. HISTORY: This is the second recent [facility] admission for this 63-year-old white man who presented to the emergency room with rapid heart rate and shortness of breath. He was found to have SVT with heart rate 140. He was admitted for further evaluation and treatment after Cardizem drip. INITIAL LABORATORY: Hemoglobin 15.6, hematocrit 47.2, white blood count 01876 with normal differential. Sodium was 141, potassium 4.0, BUN 15, creatinine 1.0, glucose 184. Liver function studies normal. Troponin T less than 0.01. ProBNP 61. Total protein 7.1, albumin 4.7. HOSPITAL COURSE: He had 1 other episode of brief SVT early a.m. of admission. He has been feeling well through the day. He was seen by Cardiology, who recommended discharge this afternoon. He is discharged home to be seen on Tuesday in my office for followup. He has had no chest pain through the day today. He has been ambulatory and is eating well. cc: Mt Torres MD
== END 2019-01-12 16:40 | disposition home or self-care (01) ==
LOC: ED 00:43 → 3N 00:43 → SUATTDRO 00:44
PROVIDERS: ADMIT Family Medicine; ATTEND Family Medicine